=== PATIENT | female | born 1940 | race Caucasian/White ===

== ENCOUNTER → 2017-09-30 | Day surgery (SDC) | payer OTHER ==
[~2017-09-30] VITALS: Ht 154.9 cm; Wt 95.4 kg
[~2017-09-30] MED LIST: ATROPINE SULFATE 1% OPHT SOLN 2 ML BTL ONE; CHLORHEXIDINE GLUCONATE 2 % 1 PACK (2 CLOTHS) TOPICAL PRN; CYCLOPENTOLATE HCL 1% OPHT SOLN 2 ML BTL ONE; DEXAMETHASONE SOD PHOS 4 MG/ML VIAL ONE; DIPH12.5S PO; DO NOT ADM ANY ANTICOAGULANT DRUGS PRN; EPINEPHrine HCL (1:1000) 1 MG/ML VIAL ONE; HYDR-3516 PO; INSULIN HUMAN REGULAR 1,000 UNITS/10 ML VIAL SQ PRN; LACTATED RINGER'S 1000 ML IV PRN; METOPROLOL TARTRATE 25 MG TAB PO PRN; MULT1TAB PO; PHENYLEPHRINE HCL 2.5% OPTH SOLN 2 ML BTL ONE; POVIDONE IODINE 5% (ANTISEPSIS KIT) 4 APPLICATIONS EACH NARE PRN; SODIUM CHLORID 0.9% 500 ML IV PRN; TOBRAMYCIN/DEXAMETHASONE OPTH OINT 3.5 GM TUBE ONE; TRIAMCINOLONE ACETONIDE/PF 40 MG/ML OPTH VIAL ONE; TROPICAMIDE 1% OPHT SOLN 15 ML BTL ONE; VITA100018 PO; ceFAZolin INJ 1,000 MG VIAL ONE; oxyCODONE/ACETAMINOPHEN 5 MG/325 MG TAB ONE
[2017-09-30 07:55] LABS: AUTOMATED NEUTROPHIL # 4.2 TH/MM3 (1.8-7.7); BASOPHIL # 0.1 TH/MM3 (0-0.2); BASOPHIL % 0.8 % (0.0-2.0); EOSINOPHIL # 0.2 TH/MM3 (0-0.4); EOSINOPHIL % 2.5 % (0.0-4.0); LYMPH % 30.2 % (9.0-44.0); LYMPHOCYTE # 2.1 TH/MM3 (1.0-4.8); MEAN CELL VOLUME 92.3 FL (80.0-100.0); MEAN CORPUSCULAR HEMOGLOBIN 31.5 PG (27.0-34.0); MEAN CORPUSCULAR HGB CONC 34.1 % (32.0-36.0); MEAN PLATELET VOLUME 7.6 FL (7.0-11.0); MONO % 7.8 % (0.0-8.0); MONOCYTE # 0.5 TH/MM3 (0-0.9); NEUT % 58.7 % (16.0-70.0); PLATELET COUNT 257 TH/MM3 (150-450); RED BLOOD COUNT 4.76 MIL/MM3 (4.00-5.30); RED CELL DISTRIBUTION WIDTH 13.7 % (11.6-17.2); WHITE BLOOD COUNT 7.1 TH/MM3 (4.0-11.0)
[2017-09-30] MEDS: TROPICAMIDE 1% OPHT SOLN 15 ML BTL RIGHT EYE SCH ×4 (07:55→08:45)
[2017-09-30] MEDS: PHENYLEPHRINE HCL 2.5% OPTH SOLN 2 ML BTL RIGHT EYE SCH ×4 (07:55→08:45)
[2017-09-30] MEDS: CYCLOPENTOLATE HCL 1% OPHT SOLN 2 ML BTL RIGHT EYE SCH ×4 (07:55→08:45)
[2017-09-30] MEDS: ATROPINE SULFATE 1% OPHT SOLN 5 ML BTL RIGHT EYE SCH ×4 (07:55→08:45)
--- NOTE | 2017-09-30 11:25 | MP ---
cc: Laurie Quan MD DATE OF OPERATION: 09/30/2017 PREOPERATIVE DIAGNOSIS: Visually significant epiretinal membrane with macular pucker, right eye. POSTOPERATIVE DIAGNOSIS: Visually significant epiretinal membrane with macular pucker, right eye. PROCEDURE PERFORMED: Trans pars plana vitrectomy with membranectomy, scatter laser photocoagulation and air-fluid exchange, right eye. SURGEON: Destiny Quan MD. ANESTHESIA: General endotracheal tube anesthesia. INDICATIONS: Ms. Garcia is a 77-year-old woman who complained of decreased and distorted central vision in her right eye and was found to have a visually significant epiretinal membrane with macular pucker. She wished to proceed electively with vitrectomy and membrane stripping. The risks and benefits of surgery were discussed with the patient and informed consent was obtained. No guarantee was made as to visual outcome. PROCEDURE NOTE: She was brought to [facility] operating room #1 on the eye stretcher. Appropriate anesthesia monitoring devices were applied and she was placed under general anesthesia using an endotracheal tube. The right eye was identified as the operative site and prepped and draped in the usual sterile fashion. A lid speculum was placed. At this point, an appropriate time-out was called with the surgical team agreeing to the proposed procedure and surgical site. Using the microscope for visualization, the 23-gauge vitrectomy system was used to place the trocar cannulas 3.5 mm posterior to the limbus. Infusion cannula was affixed to the infusion cannula at 9 o'clock and turned on. The Kenalog was introduced into the posterior chamber to help visualize the vitreous and then a core vitrectomy was carried out using the flat lens for visualization. Once the core vitrectomy had been carried out, a Duc membrane scraper was used to create an edge of the membrane along the superior temporal arcade. It was then peeled inferonasally over the fovea and then removed with aspiration using the soft tip linear extrusion needle. The fundus was inspected with the indirect ophthalmoscope and some prophylactic laser scatter was placed around the periphery using a power of 200-400 milliwatts and 0.1 second exposure for a total number of treatments of 453. A partial air-fluid exchange was performed after which the trocar cannulas were removed 1 by 1 with tamponade of the site with a cotton swab and diathermy to the overlying conjunctival wound. This left the eye with good pressure and no visible air leaks. Atropine drops were placed on the cornea, followed by subconjunctival actions of Ancef 125 mg in 0.5 mL and Decadron 2 mg in 0.5 mL. The lid speculum was removed and TobraDex ointment were placed on the cornea after the patient was then draped. The right eye was then patched and shielded. The patient had the endotracheal tube removed in the room and was returned to recovery area in good condition laying on her left side. MD BRIDGER Mosquera/SUSANA , 11:11 AM , 11:24 AM
[2017-09-30 13:16] VITALS: BP 119/62; PULSE 82; RESP 16; O2SAT 95
--- NOTE | 2017-09-30 16:16 | EKG ---
Date Performed: 09/30/2017 Time Performed: 07:18:06 PTAGE: 77 years EKG: Sinus rhythm WITH OCCASIONAL SUPRAVENTRICULAR PREMATURE COMPLEXES BORDERLINE ECG NO PREVIOUS TRACING DOCTOR: Denton Holley Interpretating Date/Time 09/30/2017 16:14:38
== END | disposition home or self-care (01) ==
LOC: HSDC 06:42
PROVIDERS: ATTEND Ophthalmology
DX: H35.371 Puckering of macula, right eye (principal); R94.31 Abnormal electrocardiogram [ECG] [EKG]
CPT/HCPCS: 00145; 67041; 85025; 93005; J0171; J0690; J1100; J3010; J3300; J7120